=== PATIENT | female | born 1980 | race Caucasian/White ===

== ENCOUNTER 2020-06-06 09:58 | Outpatient (CLI) | payer OTHER, SELFPAY ==
--- NOTE | 2020-06-06 10:12 | MM_ITS ---
WS: [id number] Bilateral diagnostic digital mammogram, 06/06/2020 Clinical Data: LEFT BREAST LUMP Comparison: None. Findings: There are mole markers on both breasts. The breast parenchymal pattern shows extreme density. There i s a marker at the medial aspect of left breast the 2:00 position but no abnormalities are seen. There are no spiculated masses or clustered calcifications. There are no secondary signs of carcinoma. MM/[id number] Impression: 1. Palpable nodule medial aspect left breast with no mammographic abnormalities . 2. Recommend left breast ultrasound BIRADS: 2-Benign FOLLOW UP: 1 Year Follow-up The CAD frickertron checker was used.
--- NOTE | 2020-06-06 10:12 | US_ITS ---
WS: [id number] Left breast ultrasound, 06/06/2020 Clinical Data: LEFT BREAST LUMP Comparison: Mammogram, 06/06/2020 Findings: There is a simple cyst at the 3:00 position of the left breast 2 cm from the nipple corresponding to the palpable nodule. The wall is well-defined. No abnormal internal echoes are seen. It measures 0.99 x 1.13 x 1.24 cm. US/US breast LT limited* [id number] Impression: 1. Thick walled simple cyst in the medial aspect of the left breast. 2. Recommend annual screening mammograms. BIRADS: 2-Benign FOLLOW UP: 1 Year Follow-up
== END 2020-06-06 09:59 | disposition home or self-care (01) ==
LOC: RADSHAW 10:02
PROVIDERS: PCP Family Medicine; Visit Provider Nurse Practitioner Family
DX: N63.20 Unspecified lump in the left breast, unspecified quadrant (principal)
CPT/HCPCS: 76642; 77066

== ENCOUNTER 2021-06-24 10:20 | Outpatient (CLI) | payer OTHER, SELFPAY ==
--- NOTE | 2021-06-24 15:30 | MM_ITS ---
WS: [id number] Exam: [id number] Date/Time of Exam: 06/24/2021 10:28 AM Reason For Exam: Z12.39 - Encounter for other screening for malignant neop... VIEWS: MLO and CC views both breasts. Comparison made with prior exam of 06/06/2020. Findings: There was no sign of mass, architectural distortion or suspicious calcification in either breast. Ve [place] dense MM/[id number] Impression: BI-RADS: 2-Benign FOLLOW-UP: 1 Year Follow-up This mammogram was also analyzed by the Computer Aided Detection System R2 Imag e Operator Cavity Pump.
== END 2021-06-24 10:21 | disposition home or self-care (01) ==
LOC: RADSHAW 10:23
PROVIDERS: PCP Family Medicine; Visit Provider Obstetrics & Gynecology
DX: Z12.31 Encounter for screening mammogram for malignant neoplasm of breast (principal)
CPT/HCPCS: 77067

== ENCOUNTER 2022-10-03 11:28 | Emergency (ER) | payer OTHER, SELFPAY ==
[2022-10-03 11:33] VITALS: BP 100/73; PULSE 83; RESP 16; TEMP 36.4; O2SAT 99
[2022-10-03] MEDS: orphenadrine 30 mg/mL Inj 2 mL 60 MG IM (12:12)
[2022-10-03] MEDS: dexamethasone 10 mg/mL INJ IM (12:12)
[2022-10-03] MEDS: ketorolac 30 mg/mL INJ IM (12:13)
--- NOTE | 2022-10-03 12:24 | ED_ITS ---
HPI - Back Pain/Injury General: Chief Complaint: Back Pain/Injury Stated Complaint: low back injury Time Seen by Provider: 10/03/22 11:36 Source: patient Mode of arrival: ambulatory History of Present Illness: 42-year-old female history of chronic back pain presents emergency room with sudden onset of worsening pain with radicular-like symptoms. She has had previous MRI which showed some disc disease but no significant stenosis. She is not any loss of bowel or bladder control. This happened suddenly while she was bending over while shopping. MD elicited complaint: back pain Pertinent past history: prior back pain Onset (ago): hour(s) Timing: constant Severity: severe Similar Symptoms Previously: Yes Quality: sharp Location: lumbar spine Radiation: right upper leg and right leg below the knee Exacerbating factors: none Relieving factors: none Context: bending Associated symptoms: Deny abdominal pain, arthralgias, chills, change in bowel habits, difficulty walking, dysuria, fatigue, fecal incontinence, fever(s), hematuria, myalgias, nausea, numbness, syncope, tingling/numbness/burning, urinary frequency, urinary urgency, vomiting or weakness Review of Systems Const: Denies: fever(s), chills, fatigue or malaise ENMT: Denies: throat pain, ear or mastoid pain, nasal discharge or nasal congestion Card: Denies: syncope Resp: Denies: dyspnea, productive cough or non-productive cough GI: Denies: abdominal pain, nausea, vomiting, fecal incontinence or change in bowel habits : Denies: dysuria, urinary urgency or hematuria Skin/Breast: Denies: rash or pruritus Neuro: Denies: difficulty walking PFSH ED PFSH: Medical History No pertinent past medical history Denies diabetes, asthma, hypertension, seizures, DVT/PE PCP: Dr. Busby Surgical History History of section, low transverse (~2004) Dr. Patel due to breech presentation at [facility] History of hysterectomy (~11/2010) 11/2010--- LAVH done by Dr. Gutierrez for endometriosis and painful. Per patient ovary was not removed. She also had labioplasty done at the same time History of laparoscopy 2008 done for pelvic pain by Dr. Mansfield. Per patient adhesions and endometriosis was identified at time of surgery Family History Family/Other Breast cancer maternal aunt, diagnosed in her late 50s Father Hypertension Mother Hypertension Denies family history of Colon cancer Ovarian cancer Diabetes Heart disease Hyperlipidemia Uterine cancer Thyroid condition Stroke Social History Smoking and tobacco status: current every day smoker cigarettes Packs smoked per day: 0.5 Years cigarettes smoked: 20 Smoking risk assessment/counseling performed?: No Alcohol intake: never Physical Exam Const: GENERAL APPEARANCE: cooperative ORIENTATION/CONSCIOUSNESS: Yes awake HENMT: COMMON NORMALS: normocephalic, atraumatic and hearing grossly normal bilaterally HEAD & SCALP: normocephalic and atraumatic Resp: COMMON NORMALS: normal respiratory effort, No retractions, No use of accessory muscles and clear to auscultation bilaterally AUSCULTATION: clear to auscultation bilaterally Cardio: COMMON NORMALS: regular rate, regular rhythm and No murmurs present (Cardio) RATE: regular rate RHYTHM: regular rhythm GI: COMMON NORMALS: Soft to palpation and No hepatosplenomegaly present AUSCULTATION: Yes normoactive bowel sounds PALPATION: Yes Soft to palpation, No Tenderness to palpation present (GI), No Guarding due to palpation present (GI) and Yes No hepatosplenomegaly present Extremity: COMMON NORMALS: normal to inspection, capillary refill normal, no clubbing, cyanosis or edema, no calf tenderness and no pedal edema Neuro: DEEP TENDON REFLEXES: Right patellar reflex intensity grade: 2+ and Left patellar reflex intensity grade: 2+ OTHER: Dorsum plantar flex strength 5 of 5 Skin: COMMON NORMALS: no rashes or lesions noted GENERAL SKIN EXAM: no rashes or lesions noted Course Vital Signs: Vital signs: Vital Signs Temperature 97.6 F 10/03/22 11:33 Pulse Rate 83 10/03/22 11:33 Respiratory Rate 16 10/03/22 11:33 Blood Pressure 100/73 10/03/22 11:33 Pulse Oximetry 99 10/03/22 11:33 MDM - Back Pain/Injury Medical Decision Making Lumbar back pain with radiculopathy. We will discharge patient home on hydrocodone prednisone taper tizanidine and diclofenac follow-up with outpatient MRI and follow-up with Dr. Johnston after the MRI. Medical Records I reviewed the patient's medical records. Labs I reviewed the patient's lab results. Discharge Plan Discharge Patient Disposition: Home Clinical Impression: Lumbar radiculopathy Condition: Stable Prescriptions: New hydrocodone-acetaminophen 5-325 mg tablet 1 tab PO Q6H PRN (Reason: pain) Qty: 20 0RF prednisone 20 mg tablet 20 mg PO TID Qty: 15 0RF Rx Instructions: 1 p.o. 3 times daily x3 days, 1 p.o. twice daily x2 days, 1 p.o. daily x2 days diclofenac sodium 75 mg tablet,delayed release (DR/EC) 75 mg PO Q12H PRN (Reason: pain) Qty: 20 0RF tizanidine 4 mg tablet 4 mg PO Q6H PRN (Reason: muscle spasticity) Qty: 20 0RF Rx Instructions: do not exceed 3 doses per 24 hrs Discharge Orders: Discharge ED (Routine); Ordered 10/03/22 Ordered By: Monico Blue Referrals: Jose R Busby DO [Primary Care Provider] - Discharge Diet: Usual diet Discharge Activity: Limit activity as instructed Patient Instructions: Opioid Safety, Pain Management Activity Restrictions/Additional Instructions: You are seen today for back pain with radicular symptoms into your right leg. Avoid lifting bending stooping etc. Do not carry or lift anything greater than 10 pounds (a gallon of milk is approximately 10 pounds). You are given prescriptions for diclofenac hydrocodone and tizanidine to use as needed take the prednisone regularly as scheduled starting tomorrow. Case management make arrangements for you to follow-up with an MRI of your back and to see Dr. Johnston in the orthopedic spine clinic. Coding Level of Care Code ED Manager Trade for Ryan Sawyer
[2022-10-03] MEDS: morphine 4 mg/mL SDV 1 mL IVP (13:07)
--- NOTE | 2022-10-06 13:38 | DCPLANNER ---
Addendum entered by Linda Keene 10/15/22 08:01: Patient had an MRI scheduled - patient did attend appointment Addendum entered by Linda Keene 10/14/22 09:01: Patient has an outpatient MRI scheduled for Saturday, October 15, 2022 Addendum entered by Linda Keene 10/14/22 09:00: Patient had a follow up appointment scheduled with ortho - patient did attend appointment Addendum entered by Linda Keene 10/13/22 09:38: shared services manager received the following message from centralized scheduling regarding MRI: Based on the clinical information provided, the request has not demonstrated consistency with evidence-based clinical guidelines shared services manager called ortho, informed the clinic that patients insurance denied the MRI, for the physician to be aware of this, and that if the physician wanted the test ordered then he could order it from the patients visit. Patient has a follow up appointment scheduled for Thursday, October 13, 2022 at 1:[address] Johnston. Addendum entered by Linda Keene 10/07/22 15:20: shared services manager received the following message from the ortho clinic regarding follow up appointment: spoke to patient - she will give us a call when they get her scheduled for the MRI - we will schedule her THOR after the testing is done Original Note: shared services manager had message to schedule an outpatient MRI for patient. shared services manager faxed patients information to the centralized scheduling, who will call patient with appointment information. shared services manager had message to schedule a follow up appointment for patient with ortho. shared services manager sent patients information to the front office staff at ortho. Patients information will be printed and reviewed. Clinic will call patient with appointment information.
== END 2022-10-03 13:29 | disposition home or self-care (01) ==
PROVIDERS: Emergency Provider Family Medicine; PCP Family Medicine
DX: M54.16 Radiculopathy, lumbar region (principal); F17.210 Nicotine dependence, cigarettes, uncomplicated
CPT/HCPCS: 96372; 96374; 99284; J1100; J1885; J2270; J2360

== ENCOUNTER → 2022-10-13 13:06 | Outpatient (BNVA) | payer OTHER, SELFPAY | PROVIDERS: PCP Family Medicine; Visit Provider Orthopaedic Surgery | DX: M54.16 Radiculopathy, lumbar region (principal) | CPT/HCPCS: 72110 ==

== ENCOUNTER 2022-10-14 11:50 | Outpatient (CLI) | payer OTHER, SELFPAY ==
--- NOTE | 2022-10-14 12:00 | MR_ITS ---
WS: [id number] MRI LUMBAR SPINE NONCONTRAST HISTORY: low back pain with radiculopathy, disc herniation, RIGHT leg pain and numbness. COMPARISON: 07/08/2016 TECHNIQUE: Sagittal and axial multisequence imaging is submitted. Slight straightening and reversal normal cervical lordosis. Mild curvature thoracic and lumbar spines . Mild straightening of the normal lumbar lordosis. No fracture or marrow edema. Disc desiccation and narrowing is mild to moderate at L4-5 and L5-S1. Conus terminates normally at L1-2 disc level. L1-L2: Normal. L2-L3: Normal. L3-L4: Normal. L4-L5: Large central disc protrusion has increased in size since 2017. Disc protrusion extends over a width of 1.6 cm in superior inferior by 1.2 cm. There is significant mass effect upon the ventral th ecal sac and the nerve roots. Most significant mass effect upon the transverse nerve roots, RIGHT gre ater than LEFT. No foraminal stenosis. L5-S1: Very slight disc bulge. LEFT paracentral annular fissure has progressed. Very minimal foramina l encroachment. MR/MR lumbar spine wo con* [id number] IMPRESSION: 1. Large central disc protrusion at L4-5 has increased in size since 2017. 2. Central disc protrusion at L4-5 with significant mass effect upon the theca l sac and traversing nerve roots, RIGHT greater than LEFT. 3. LEFT paracentral annular fissures at L5-S1.
== END 2022-10-14 11:51 | disposition home or self-care (01) ==
PROVIDERS: PCP Family Medicine; Visit Provider Orthopaedic Surgery
DX: M54.16 Radiculopathy, lumbar region (principal); M51.26 Other intervertebral disc displacement, lumbar region
CPT/HCPCS: 72148

== ENCOUNTER 2022-10-21 05:50 | Day surgery (SDC) | payer OTHER, SELFPAY ==
[2022-10-16 08:00] VITALS: BMI 21.4
--- NOTE | 2022-10-16 12:33 | P.ANESASSM_ITS ---
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 Operation Date: 10/21/22 07:00 Proposed Procedures p Lumbar Spine Decompression: L4/5 Mis decompression 94057 M54.16,M54.9(Not Applicable) - Mynor Johnston DO Familial anesthetic complications: none Was Beta Purnima taken within 24 hours: N/A Was Clonidine taken within 24 hours: N/A Social No alcohol and No tobacco Exam alert, oriented x 3, clear to auscultation bilaterally and regular rate & rhythm Airway Submandibular: within normal limits Cervical ROM: within normal limits Mallampati: Class II Dentition: full Musc/skel Lower Back Pain Neuropsych Anxiety Anesthetic Plan ASA status: 2 Anesthesia: General Medications/Allergies Home Medications Medication Instructions Recorded Confirmed Last Taken Type hydrocodone 5 mg-acetaminophen 325 1 tab PO Q6H PRN pain #20 tabs 10/03/22 10/16/22 10/13/22 Rx mg tablet tizanidine 4 mg tablet 4 mg PO Q6H PRN muscle spasticity 10/03/22 10/16/22 10/16/22 Rx #20 tabs diazepam 5 mg tablet (Valium) 5 mg PO BID PRN anxiety 7 days #14 10/13/22 10/16/22 Unknown Rx tabs Allergies Allergy/AdvReac Type Severity Reaction Status Date / Time Penicillins Allergy anaphylaxis-never Verified 10/16/22 07:56 tried Keflex [facility] Anesthesia Medical History No pertinent past medical history Denies diabetes, asthma, hypertension, seizures, DVT/PE PCP: Dr. Busby Surgical History History of section, low transverse (~2004) Dr. Patel due to breech presentation at [facility] History of hysterectomy (~11/2010) 11/2010--- LAVH done by Dr. Gutierrez for endometriosis and painful. Per patient ovary was not removed. She also had labioplasty done at the same time History of laparoscopy 2008 done for pelvic pain by Dr. Mansfield. Per patient adhesions and endometriosis was identified at time of surgery Family History Family/Other Breast cancer maternal aunt, diagnosed in her late 50s Father Hypertension Mother Hypertension Denies family history of Colon cancer Ovarian cancer Diabetes Heart disease Hyperlipidemia Uterine cancer Thyroid condition Stroke Social History Smoking and tobacco status: current every day smoker cigarettes Packs smoked per day: 0.5 Years cigarettes smoked: 20 Smoking risk assessment/counseling performed?: No Alcohol intake: never Data Anesthesia Cardiac Studies: No Data to Display
[2022-10-21] VITALS (7 sets, daily range): BP systolic 109–121; BP diastolic 64–88; PULSE 56–87; RESP 16–18; TEMP 36.3–37.1; O2SAT 99–100
[2022-10-21] MEDS: sodium chloride 0.9% 1,000 ML 30 ML IV (06:21)
--- NOTE | 2022-10-21 06:23 | W.PM.OPSUD ---
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
[2022-10-21] MEDS: clindamycin 900 MG/50 ML PREMIX 100 MG IV (06:58)
--- NOTE | 2022-10-21 07:20 | P.ANESUD_ITS ---
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-5 Proposed Procedure: Operation Date: 10/21/22 07:00 Proposed Procedures p Lumbar Spine Decompression: L4/5 Mis decompression 71927 M54.16,M54.9(Not Applicable) - Mynor H Vickie, DO Any changes to Pre-Anesthetic Assessment?: No Last Intake: Intake Last Liquid Date 10/20/22 Last Liquid Time 22:00 Last Solid Date 10/20/22 Last Solid Time 20:00 Vitals: Temperature 98.8 F 10/21/22 06:11 Temperature Source Temporal Artery S can 10/21/22 06:11 Pulse Rate 71 10/21/22 06:11 Respiratory Rate 16 10/21/22 06:11 Blood Pressure 117/70 10/21/22 06:11 Blood Pressure Agnieszka n 85 10/21/22 06:11 Pulse Oximetry 100 10/21/22 06:11 Oxygen Delivery Me thod Room Air 10/21/22 06:11 Exam: Pre-Anes Outpt Exam: alert, oriented x 3, clear to auscultation bilaterally and regular rate & rhythm Cardiac Studies: No Data to Display
[2022-10-21] MEDS: lidocaine-epi 1% 20 mL INJ 10 ML INJECTION (07:45)
[2022-10-21] MEDS: thrombin 5,000 unit SDV 5000 UNIT XX (07:57)
--- NOTE | 2022-10-21 08:07 | XR_ITS ---
WS: [id number] Lumbar spine, C-arm fluoroscopy views, 10/21/2022 Clinical Data: OR PICS Comparison: None. Findings: Dr. Johnston performed a lumbar decompression XR/XR lumbar spine 2-3V* [id number] Impression: Lumbar decompression.
--- NOTE | 2022-10-21 08:20 | PM.OP ---
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 Right L4/5 laminectomy with partial facetectomy Surgeon: Mynor Johnston Cattle Rancher: Julio C Melendez Cattle Rancher: The surgical training specialist, IRINA Salguero was needed for his expertise under the microscope. He was important and necessary throughout the procedure to complete in a safe and timely manner. He assisted with patient positioning prepping and draping tissue retraction suctioning of the operative field protection of the dural sac and tissue closure Estimated blood loss (mL): 15 Procedure: 1. Right L4/5 laminectomy with partial facetectomy Patient is brought to the operative suite. After undergoing anesthesia they are placed in the prone position. All areas of impingement are well padded. Patient is then prepped and draped in the normal sterile fashion. A skin incision is made over the L4/5 level. This is confirmed under c-arm guidance. A series of dilators are passed and the tubular retractor is docked on the L4 lamina. A bovie is used to clear the soft tissue off the lamina and the L 4/5 facet joint. A high speed jaydon is then used to perform the laminectomy and take down the medial aspect of the L 4/5 facet joint. A kerrison rongeure was then used to take down the remaining lamina and smooth the edge of the laminectomy up to the point where the ligamentum flavum attaches. Attention was then brought to the medial aspect of the facet joint. The remaining medial aspect of the superior and inferior aspect of the facet joint were taken down with the kerrison from the pedicle of L4 to L 5. The facet joint had significant hypertrophy. Attention was then brought to the Ligamentum Flavum. The ligament was taken down from the lamina of L4 to L5 and out medially to the remaining facet joint. The ligament was thick. The dura was then exposed. The dura was in good repair. L5 nerve root was retracted medially. Disc was identified. The pseudocapsule form was cut with a curved curette. Disc material immediately came out. Micropituitary was used to remove all of this. The disc base was irrigated and any small fragments that were loose were removed. The L4 nerve was then traced with a curette out the L4/5 foramen and found to be adequately decompressed. The L5 nerve was traced with a curette around the L5 pedicle. The lateral recess was opened with a kerrison helping to further decompress the L5 nerve. Wound is then irrigated copiously with saline and surgiflo is used to stop any bleeding. The tubular retractor is removed and the wound is closed with vicryl and monocryl suture. Glue is then used to protect the wound. A sterile dressing is then placed. Patient was then placed in the supine position and transferred to the PACU in stable condition.
[2022-10-21] MEDS: HYDROcodone-acetaminophen 5-325 mg Tablet 1 TAB PO (08:59)
--- NOTE | 2022-10-21 09:43 | P.PCN_ITS ---
PACU note Narrative: VSS, Good respiratory effort, report to EDGE BASTER Exam: awake
--- NOTE | 2022-10-21 09:43 | PM.PACU ---
PACU note Narrative: VSS, Good respiratory effort, report to RADIOLOGY TRANSCRIPTIONIST Exam: awake
--- NOTE | 2022-10-21 12:35 | ANE.PACU2 ---
Inpatient post-anesthesia follow up: Airway intact: Yes Vital signs: Temperature 97.3 F Pulse Rate 56 Respiratory Rate 16 Blood Pressure 119/80 Pulse Oximetry 100 Oxygen Delivery Me thod Room Air Oxygen Flow Rate Fraction of Inspir ed Oxygen Hydration adequate: Yes Nausea and vomiting: No Pain level: 3 Mental status: Baseline
== END 2022-10-21 09:20 | disposition home or self-care (01) ==
PROVIDERS: PCP Family Medicine; Visit Provider Orthopaedic Surgery
PROC: (CPT 63005; principal; 2022-10-21 07:00)
DX: M51.26 Other intervertebral disc displacement, lumbar region (principal); M54.16 Radiculopathy, lumbar region; F41.9 Anxiety disorder, unspecified; Z79.891 Long term (current) use of opiate analgesic; F17.210 Nicotine dependence, cigarettes, uncomplicated
CPT/HCPCS: 63030; 72100; 76000; J1100; J2405; J2704; J3010; J3490; J7030

== ENCOUNTER 2024-06-14 08:23 | Outpatient (CLI) | payer OTHER, SELFPAY ==
--- NOTE | 2024-06-14 08:28 | MM_ITS ---
WS: [id number] SCREENING DIGITAL BREAST TOMOSYNTHESIS MAMMOGRAM WITH CAD HISTORY: SCREENING COMPARISON: 03/07/2020, 06/24/2021 Bilateral CC and MLO with tomosynthesis and synthetic mammography submitted. Computer aided detection analyzed. Breast composition: The breasts are heterogeneously dense, which may obscure small masses. History of high density masses in the RIGHT breast. Partially described mass at 6:00 measures 10 x 7 x 10 mm. There is an additional retroareolar mass which is partially scarred measuring 19 x 23 x 16 m m. No mass is identified in the LEFT breast. There are a few benign calcifications scattered within e ach breast. MM/MM [facility] tomosynthesis [id number] IMPRESSION: BI-RADS: 0 - Incomplete: Need additional imaging evaluation FOLLOW UP: Need Additional Imaging Recommendation: RIGHT breast ultrasound. Ultrasound directed retroareolar and 6 :00.
== END 2024-06-14 08:24 | disposition home or self-care (01) ==
LOC: RAD 08:24
PROVIDERS: PCP Family Medicine; Visit Provider Family Medicine
DX: Z12.31 Encounter for screening mammogram for malignant neoplasm of breast (principal); R92.333 Mammographic heterogeneous density, bilateral breasts; N63.41 Unspecified lump in right breast, subareolar
CPT/HCPCS: 77063; 77067

== ENCOUNTER 2024-07-18 07:45 | Outpatient (CLI) | payer OTHER, SELFPAY ==
--- NOTE | 2024-07-18 07:54 | US_ITS ---
WS: [id number] ULTRASOUND RIGHT BREAST HISTORY: Follow-up screening mammogram. COMPARISON: 06/14/2024 TECHNIQUE: 2-D and Doppler. Multiple simple breast cysts are identified by ultrasound. The largest is retroareolar measuring 2.6 x 1.7 x 2.3 cm. Numerous cysts retroareolar and 6:00. No solid mass identified. US/US breast RT limited* [id number] IMPRESSION: BI-RADS: 2- Benign FOLLOW-UP: 1 Year Follow-up Return to annual screening mammography. Multiple simple breast cysts are identi fied by ultrasound.
== END 2024-07-18 07:46 | disposition home or self-care (01) ==
PROVIDERS: PCP Family Medicine; Visit Provider Family Medicine
DX: N63.10 Unspecified lump in the right breast, unspecified quadrant (principal); R92.8 Other abnormal and inconclusive findings on diagnostic imaging of breast
CPT/HCPCS: 76642

== ENCOUNTER 2024-08-28 07:55 | Outpatient (CLI) | payer OTHER, SELFPAY ==
--- NOTE | 2024-08-28 08:04 | CT_ITS ---
WS: [id number] CT NECK TECHNIQUE: Contrast-enhanced CT of the neck with coronal and sagittal reformatted images. CLINICAL INFORMATION: ATYPICAL FACIAL PAIN COMPARISON: None. DLP: 138.[address] scans at [facility] use at least one of these dose optimization techniques: automated exposure control; mA and/or kV adjustment per patient size (includes targeted exams where dose is matched to clinical indication); or iterative reconstruction. FINDINGS: No cervical lymphadenopathy. Parotid glands are normal. Normal LEFT submandibular gland. Absent RIGHT submandibular gland. Calculus along the distal RIGHT submandibular duct measuring 5 mm. No cervical lymphadenopathy. Bilateral thyroid nodules largest on the RIGHT measuring 1.6 x 0.7 cm. Lung apices are well aerated. Sphenoid sinusitis with air-fluid level in the LEFT sphenoid sinus. Mucosal thickening LEFT mastoid air cells. Normal posterior nasopharynx. Normal parapharyngeal fat. No evidence of supraglottic or glottic mass. Normal vallecula and piriform sinuses. Normal subglottic airway. Mild spondylitic changes cervical spine. Disc space narrowing C4-C5 and C5-C6. CT/CT neck w con* [id number] IMPRESSION: 1. Normal parotid glands. Normal LEFT submandibular gland. Absent RIGHT subman dibular gland. 2. 5 mm calculus along the distal RIGHT submandibular duct at the level of the ductal papilla. 3. No evidence of supraglottic or glottic mass. Normal subglottic airway. 4. Sphenoid sinusitis. Mucosal thickening LEFT mastoid air cells. 5. Bilateral thyroid nodules. This can be followed up with ultrasound.
[2024-08-28] MEDS: iohexol 350 mg/mL 500 mL Btl (per mL) IV (08:35)
== END 2024-08-28 07:56 | disposition home or self-care (01) ==
PROVIDERS: PCP Family Medicine; Visit Provider Specialist
DX: G50.1 Atypical facial pain (principal); R93.89 Abnormal findings on diagnostic imaging of other specified body structures; K11.5 Sialolithiasis; J32.3 Chronic sphenoidal sinusitis; E04.2 Nontoxic multinodular goiter; M47.892 Other spondylosis, cervical region; M48.02 Spinal stenosis, cervical region
CPT/HCPCS: 70491

== ENCOUNTER 2025-01-02 09:25 | Observation (INO) | payer OTHER, SELFPAY ==
[2025-01-02] VITALS (27 sets, daily range): BP systolic 101–143; BP diastolic 64–86; PULSE 44–84; RESP 12–23; TEMP 36.2–36.8; O2SAT 95–100; BMI 21.8
[2025-01-02 06:27] LABS: Hematocrit 45.0 % (36-47); Hemoglobin 15.00 g/dL (11.27-16.99); Mean Corpuscular HGB Conc 33.3 g/dL (30-55); Mean Corpuscular Hemoglobin 28.1 pg (27-33); Mean Corpuscular Volume 84.4 fl (85-98); Nucleated Red Blood Cells % 0 %; Platelet Count 249 10^3/cmm (157-399); Red Blood Count 5.33 10^6/uL (3.85-5.65); White Blood Count 6.30 10^3/uL (3.29-11.43)
[2025-01-02 06:48] LABS: Blood Urea Nitrogen 14 mg/dL (6-20); Calcium 9.1 mg/dL (8.5-10.5); Carbon Dioxide 25 mmol/L (22-29); Chloride 101 mmol/L (98-107); Creatinine Clr Calc Pharmacy 123.1289; Glucose 93 mg/dL (65-115); Osmolality Calculated 286 mOsm/kg (285-295); Sodium 138 mmol/L (136-145)
--- NOTE | 2025-01-02 06:50 | W.PM.OPSUD ---
Surgery/Procedure H&P Update DATE OF PROCEDURE: January 02, 2025 DATE H&P PERFORMED: 12/15/24 PRIMARY INDICATION FOR PROCEDURE: Right thyroid nodule with suspicious FNA biopsy PLANNED PROCEDURE: Operation Date: 01/02/25 07:00 Proposed Procedures p Hemithyroidectomy Right partial Thyroid Lobectomy(Right) - Esdras Henriquez MD s with or without Isthmusectomy(Right) - Esdras Henriquez MD
[2025-01-02 07:01] LABS: Anion Gap 16.1 (5-19); Potassium 4.1 mmol/L (3.5-5.1)
--- NOTE | 2025-01-02 07:05 | ANES.PREANE2 ---
Pre-Anesthetic Assessment Height/Weight: Height 5 ft 9 in Weight 148 lb Temp Pulse Resp BP Pulse Ox O2 Del Method 98.3 F 79 18 106/64 98 Room Air 01/02/25 06:14 01/02/25 06:14 01/02/25 06:14 01/02/25 06:14 01/02/25 06:14 01/02/25 06:14 Preop Diagnosis: Thyroid nodules Operation Date: 01/02/25 07:00 Proposed Procedures p Hemithyroidectomy Right partial Thyroid Lobectomy(Right) - Esdras Henriquez MD s with or without Isthmusectomy(Right) - Esdras Henriquez MD Was Beta Purnima taken within 24 hours: N/A Was Clonidine taken within 24 hours: N/A Last intake: Intake Last Liquid Date 01/01/25 Last Liquid Time 22:00 Last Solid Date 01/01/25 Last Solid Time 19:00 Social Tobacco and No alcohol Exam alert, oriented x 3, clear to auscultation bilaterally and regular rate & rhythm Airway Submandibular: within normal limits Cervical ROM: within normal limits Mallampati: Class I Dentition: full Anesthetic Plan ASA status: 2 Anesthesia: General Other: No prior issues with anesthesia NPO since yesterday evening Current smoker Denies any cardiac issues Labs reviewed acceptable for procedure Plan for GETA Medications/Allergies Home Medications ?Medication ?Instructions ?Recorded ?Confirmed ?Last Taken ?Type No Known Home Medications 01/02/25 01/02/25 Unknown History Allergies Allergy/AdvReac Type Severity Reaction Status Date / Time Penicillins Allergy anaphylaxis-never Verified 01/01/25 10:46 tried Keflex Current Medications Generic Name Dose Route Start Last Admin Trade Name Axel PRN Reason Stop Dose Admin Sodium Chloride 1,000 mls @ 30 mls/hr 01/02/25 06:00 01/02/25 06:24 Sodium Chloride 0.9% IV 01/03/25 05:59 30 mls/hr .Q24H SUZE Administration PFSH Anesthesia Medical History No pertinent past medical history Denies diabetes, asthma, hypertension, seizures, DVT/PE PCP: Dr. Busby Surgical History History of section, low transverse (~2004) Dr. Patel due to breech presentation at [facility] History of hysterectomy (~11/2010) 11/2010--- LAVH done by Dr. Gutierrez for endometriosis and painful. Per patient ovary was not removed. She also had labioplasty done at the same time History of laparoscopy 2008 done for pelvic pain by Dr. Mansfield. Per patient adhesions and endometriosis was identified at time of surgery Family History Family/Other Breast cancer maternal aunt, diagnosed in her late 50s Father Hypertension Mother Hypertension Denies family history of Colon cancer Ovarian cancer Diabetes Heart disease Hyperlipidemia Uterine cancer Thyroid condition Stroke Social History Smoking and tobacco/nicotine status: current every day tobacco/nicotine user cigarettes Packs smoked per day: 0.5 Years cigarettes smoked: 20 Alcohol intake: never Substance/Drug Use: never Data Anesthesia 01/02/25 06:17 01/02/25 06:17 Short CBC 01/02/25 Range/Units 06:17 WBC 6.30 (3.29-11.43) 10^3/uL Hgb 15.00 (11.27-16.99) g/dL Hct 45.0 (36-47) % MCV 84.4 L (85-98) fl Plt Count 249 (157-399) 10^3/cmm Neut % (Auto) 61.0 % Neut # (Auto) 3.84 (1.8-7.7) 10^3/uL BMP 01/02/25 06:17 Sodium 138 Potassium 4.1 Chloride 101 Carbon Dioxide 25 BUN 14 Creatinine 0.6 Glucose 93 Calcium 9.1
[2025-01-02] MEDS: lidocaine-epi 1% 20 mL INJ INJECTION (08:06)
[2025-01-02] MEDS: thrombin 5,000 unit SDV 5000 UNIT XX (08:41)
[2025-01-02] MEDS: neomycin-poly-bacitracin oint 28 gm 1 APPLIC TOPICAL (08:58)
--- NOTE | 2025-01-02 09:28 | PM.OP ---
Operative Report Date of procedure: January 02, 2025 Pre-op diagnosis: Right thyroid nodule with a supicious FNA biopsy Post-op diagnosis: same Post-op diagnosis: Same Post-op findings: Right thyroid lobe nodule O/W Normal right neck/thyroid Procedure done: Right hemithyroidectomy Implants: None Specimens removed/disposition: Right thyroid lobe Pathology: Right thyroid lobe Surgeon: Esdras Henriquez Surgeon: Esdras Henriquez MD Anesthesia: General Estimated blood loss (mL): 10 IV fluids (mL): 900 Urine output (mL): 200 Complications: None Findings: Normal sized right thyroid lobe with a palpable, hard inferior pole nodule Normal/intact Right recurrent laryngeal nerve Normal right upper and right lower parathyroid glands Condition: stable Disposition: ICU Brief History: 44 yo wf with a h/o right thyroid lobe nodule with suspicious FNA biopsy. The patient desires surgical therapy. Procedure: The patient was identified in the preoperative holding area and was taken to the operating where she is where she was placed on the operating table in supine position. Anesthesia was obtained with general endotracheal anesthesia. The Nirvana nerve monitoring electrode was placed on the endotracheal tube in the appropriate position prior to intubation and its proper position was ensured with the glide scope. A horizontal skin incision was marked out on the anterior neck 2 fingerbreadths above the sternal notch. The incision was injected with local anesthesia and the patient was then prepped and draped in the usual sterile fashion after ensuring proper placement of the recurrent laryngeal nerve monitor. The incision was then made with 15 blade and was carried down through the subcutaneous tissues using electrocautery. Once the platysma was divided the dissection proceeded in the sagittal plane in the avascular midline the strap muscles in the midline. The strap muscles were then dissected off of the right thyroid lobe and the right thyroid lobe was dissected free from the surrounding tissues in a sequential fashion circumferentially. The thyroid isthmus was dissected off of the trachea and was divided on the left side with the harmonic scalpel. As the right thyroid lobe was retracted medially the middle thyroid vein was identified and dissected free from the surrounding tissues and ligated with ligaclips. It was then divided with the microbipolar forceps. Using the Nirvana nerve monitoring hemostat attention was turned to the right inferior pole which was dissected free from the surrounding tissues. At this point the vagus nerve was stimulated with the nerve monitoring hemostat and was found to have a positive response. The thyrothymic horn was dissected off of the right inferior pole of the thyroid and the thyroid was then rotated medially. The recurrent laryngeal nerve was identified visually and electrically in the tracheoesophageal groove and then was protected as the right thyroid lobe was rotated medially while dissecting it free from the surrounding tissues with blunt dissection and the microbipolar forceps. At this point the superior pole vessels were individually dissected free from surrounding tissues and ligated with ligaclips and divided with the microbipolar forceps. As the right lobe was rotated medially it was dissected off of the trachea at Preston's ligament with the microbipolar forceps. Eventually the right lobe was removed from the patient and inspected for any retained parathyroid glands of which none were noted. The right upper and right lower parathyroids were identified in their respective locations superiorly and inferiorly and were left in place. At this point hemostasis was achieved with bipolar cautery. The wound was then irrigated with a copious amount of warm saline and the wound was inspected for hemostasis which was found to be adequate. The vagus nerve was again stimulated and found to have a positive response. At this point thrombin soaked Gelfoam was placed in the tracheoesophageal groove and a drain was placed in the wound. The wound was then closed with interrupted 4-0 Monocryl sutures in subcu and a soft running 5-0 subcuticular stitch. Final closure was achieved with Dermabond and Steri-Strips. At this point the procedure was terminated and control of the patient was returned to anesthesia where she underwent an uneventful reversal of anesthesia and extubation and was taken to the ICU in stable condition. There were no operative or anesthetic complications.
--- NOTE | 2025-01-02 09:29 | ANE.PACU2 ---
Inpatient post-anesthesia follow up: Airway intact: Yes Vital signs: Temperature 97.2 F Pulse Rate 47 Respiratory Rate 15 Blood Pressure 130/80 Pulse Oximetry 98 Oxygen Delivery Me thod [ Room Air Current Rate & Del cata] Oxygen Delivery Me thod Room Air Oxygen Flow Rate Fraction of Inspir ed Oxygen Hydration adequate: Yes Nausea and vomiting: No Pain level: 1 Mental status: Baseline
[2025-01-02] MEDS: HYDROcodone-acetaminophen 5-325 mg Tablet 1 TAB PO ×2 (12:39→21:40)
--- NOTE | 2025-01-02 13:34 | PC.NURSE ---
Larkin cath removed intact. Pt tolerated well. 10 ml of fluid removed from balloon prior.
--- NOTE | 2025-01-02 16:44 | P.PN_ITS ---
Subjective 2 Subjective: 44 yo wf with a h/o a right thyroid nodu le with a suspicious FNA biopsy who is night of surgery s/p Right hemithyroidectomy. The patient reports that she is doing well with moderate periincisional pain. Medications: Reviewed: Yes Vitals/I&O/Wt Last Vital Signs Temp 97.2 F L 01/02/25 09:34 Pulse 55 L 01/02/25 15:00 Resp 14 01/02/25 15:00 BP 102/81 01/02/25 15:00 Pulse Ox 96 01/02/25 15:00 O2 Del Method Room Air 01/02/25 15:00 01/02/25 01/02/25 01/02/25 06:59 14:59 22:59 Intake Total 2500 / 2500 Output Total 880 / 880 Balance 1620 / 1620 Weight last 48 hrs Weight 67.132 kg Weight 67.132 kg Physical Exam 2 Const: COMMON NORMALS: no acute distress, patient oriented x3 and alert G ENERAL APPEARANCE: cooperative HENMT: COMMON NORMALS: normocephalic and atraumatic HEAD & SCALP: n ormocephalic and atraumatic FACE & SINUS: normal facial exam Eye: COMMON NORMALS: EOMs intact bilaterally and no scleral icterus Neck/C-Spine: COMMON NORMALS: no lymphadenopathy and supple GENERAL: Yes trachea midline THYROID: other (Thyroidectomy incision intact without swelling) Resp: COMMON NORMALS: normal respiratory effort, No use of accessory muscles and clear to auscultation bilaterally AUSCULTATION: clear to auscultation bilaterally Cardio: COMMON NORMALS: regular rate, regular rhythm, No murmurs present (Cardio) and No rub (Cardio) RATE: regular rate RHYTHM: regular rhythm Neuro: COMMON NORMALS: patient oriented x3 SENSORIUM/ORIENTATION: Yes alert Urinary Catheter Management: Larkin: Cath Placed During This Visit: yes Urinary Catheter Date of Insertion: 01/02/25 Urinary Catheter Time of Insertion: 07:11 Data 01/02/25 06:17 01/02/25 06:17 A&P Assessment and plan (1) Thyroid nodule greater than or equal to 1 cm in diameter incidentally noted on imaging study: Impression: Night of surgery s/p right hemithyroidectomy doing well Plan: - Overnight observation - Pain control - Advance diet - Anticipate d/c in the am PDMP PDMP Reviewed: Not Reviewed Attestations 2 Medical Necessity Statement*: The patient requires overnight observation of her airway. Coding Level of Care Code Acute Code for Chg Fwd Diagnoses Thyroid nodule greater than or equal to 1 cm in diameter incidentally noted on imaging study E04.1
--- NOTE | 2025-01-02 19:08 | PC.NURSE ---
Shift summary: Pt arrived to ICU around 0930 this am from surgery. Her incision on her neck is intact, with 6 steri-strips and a WARREN drain. 20 ml of sanguineous drainage noted this shift. Pt stated there is some discomfort there but she really doesn't hurt. She did take one hydrocodone this afternoon for a headache, it was received. She tolerated milton removal well. She has been to restroom twice since with no difficulties. heart rate has been 43-65 on the monitor, sinus. VSS. Pt able to resume regular diet almost immediately after her arrival to ICU. Family has been attentive and at bedside.
--- NOTE | 2025-01-03 05:13 | P.PN_ITS ---
Subjective 2 Subjective: 44 yo wf who is POD#1 s/p right hemithyr oidectomy. The patient reports minimal pain, and is o/w without c/o. Medications: Reviewed: Yes Vitals/I&O/Wt Last Vital Signs Temp 97.2 F L 01/02/25 09:34 Pulse 55 L 01/02/25 15:00 Resp 14 01/02/25 15:00 BP 102/81 01/02/25 15:00 Pulse Ox 96 01/02/25 15:00 O2 Del Method Room Air 01/02/25 15:00 01/02/25 01/02/25 01/03/25 14:59 22:59 06:59 Intake Total 2500 / 2500 1395 / 3895 50 / 3945 Output Total 880 / 880 Balance 1620 / 1620 1395 / 3015 50 / 3065 Weight last 48 hrs Weight 67.132 kg Weight 67.132 kg Physical Exam 2 Const: COMMON NORMALS: no acute distress, patient oriented x3, healthy appearing and alert HENMT: COMMON NORMALS: normocephalic, atraumatic and Normal external nose present HEAD & SCALP: normocephalic and atraumatic FACE & SINUS: normal facial exam and face symmetric NOSE: Normal external nose present Eye: COMMON NORMALS: EOMs intact bilaterally and no scleral icterus GENERAL EYE: appearance normal, both eyes and all related structures Neck/C-Spine: COMMON NORMALS: no lymphadenopathy and supple GENERAL: Yes trachea midline THYROID: other (Thyroid area incision intact without swelling) Resp: COMMON NORMALS: normal respiratory effort, No retractions, No use of accessory muscles and clear to auscultation bilaterally AUSCULTATION: clear to auscultation bilaterally Cardio: COMMON NORMALS: regular rate, regular rhythm and No murmurs present (Cardio) RATE: regular rate RHYTHM: regular rhythm Neuro: COMMON NORMALS: patient oriented x3 SENSORIUM/ORIENTATION: Yes alert Urinary Catheter Management: Larkin: Cath Placed During This Visit: yes Urinary Catheter Date of Insertion: 01/02/25 Urinary Catheter Time of Insertion: 07:11 Data 01/02/25 06:17 01/02/25 06:17 A&P Assessment and plan (1) Thyroid nodule greater than or equal to 1 cm in diameter incidentally noted on imaging study: Impression: POD #1 s/p right hemithyroidectomy doing well Plan: - D/C to home - Santino () tabs: take 1-2 tabs po Q5 hours prn pain, #25, NR - Apply JULIAN to the drain site TID - Regular diet - F/U in Dr. Henriquez's office this week - Notify Dr. Henriquez for any problems - Maintain WARREN drain PDMP PDMP Reviewed: Not Reviewed Attestations 2 Medical Necessity Statement*: The patient required overnight observation of her airway Coding Level of Care Code Acute Code for Chg Fwd Diagnoses Thyroid nodule greater than or equal to 1 cm in diameter incidentally noted on imaging study E04.1
[2025-01-03 05:23] VITALS: TEMP 37.1
[2025-01-03 05:36] VITALS: PULSE 47
--- NOTE | 2025-01-03 06:03 | PC.NURSE ---
Script Dr Henriquez wrote patient paper script for norco 5-325 for a total of 25 tablets. Paper script given to patient to take with her upon discharge.
[2025-01-03 08:20] VITALS: BP 95/56; PULSE 73; RESP 18; TEMP 36.6; O2SAT 99
== END 2025-01-03 08:30 | disposition home or self-care (01) ==
LOC: ICU 09:26
PROVIDERS: Student in an Organized Health Care Education/Training Program; Admitting Provider Specialist; PCP Family Medicine; Visit Provider Specialist
PROC: (CPT 60225; principal; 2025-01-02 07:00)
PROC: (CPT 60225; 2025-01-02 07:00)
DX: R07.9 Chest pain, unspecified (principal); I10 Essential (primary) hypertension; D34 Benign neoplasm of thyroid gland; F17.210 Nicotine dependence, cigarettes, uncomplicated; I25.10 Atherosclerotic heart disease of native coronary artery without angina pectoris
CPT/HCPCS: 60225; 36415; 51702; 80048; 85025; 88307; G0378; J0171; J0330; J1100; J2250; J2371; J2405; J2704; J3010; J3490; J7030; J7120; J9999